=== PATIENT | female | born 1945 | race Caucasian/White ===

== ENCOUNTER → 2016-11-02 19:21 | Outpatient (CLI) | payer MEDICARE | END | disposition home or self-care (01) | LOC: D.LABREF 19:21 | DX: Z13.9 Encounter for screening, unspecified (principal) ==

== ENCOUNTER → 2018-01-28 15:04 | Outpatient (CLI) | payer MEDICARE | END | disposition home or self-care (01) | LOC: D.CT 15:00 | DX: R93.89 Abnormal findings on diagnostic imaging of other specified body structures (principal) ==